=== PATIENT | female | born 1970 | race Two or more races ===

== ENCOUNTER 2020-10-23 14:14 | Day surgery (SDC) | payer MEDICARE, BC ==
[~2020-10-23] VITALS: Ht 167.6 cm; Wt 84.2 kg
[2020-10-23] MEDS ORDERED: SODIUM CHLORIDE 0.9% 1,000 ML IV SCH (14:30)
[2020-10-23] MEDS ORDERED: CHLORHEXIDINE 15 ML UDC PO ONE (15:00)
[2020-10-23] MEDS ORDERED: aspirin PO (15:09)
[2020-10-23] MEDS ORDERED: ATOR40TA78 PO (15:09)
[2020-10-23] MEDS ORDERED: gabapentin PO (15:09)
[2020-10-23] MEDS ORDERED: LOSA50TA14 PO (15:09)
[2020-10-23] MEDS ORDERED: PARO20TA4 PO (15:09)
[2020-10-23] MEDS ORDERED: OMEP-110 PO (15:09)
[2020-10-23] MEDS ORDERED: SODI10PO PO (15:09)
[2020-10-23] MEDS ORDERED: levothyroxine PO (15:09)
[2020-10-23 15:11] VITALS: BP 120/74
[2020-10-23] MEDS ORDERED: ACETAMINOPHEN 500 MG TABLET PO ONE (15:30)
[2020-10-23] MEDS ORDERED: NOVALOG INJ (15:36)
[2020-10-23] MEDS ORDERED: TRESIBA INJ (15:36)
[2020-10-23 16:22] LABS: MEAN CORPUSCULAR HEMOGLOBIN 32.2 pg (27.0-34.8); MEAN CORPUSCULAR HGB CONC 32.8 g/dL (32.4-35.8); MEAN PLATELET VOLUME 9.2 fL (7.4-10.4); PLATELET COUNT 240 x10^3/uL (130-400); RED BLOOD COUNT 3.46 x10^6/uL (3.82-5.3); RED CELL DISTRIBUTION WIDTH 20.7 % (9.6-15.2)
[2020-10-23 16:24] LABS: ALBUMIN 3.5 g/dL (3.4-5.0); ANION GAP 7 mmol/L (5-15); CALCIUM 8.4 mg/dL (8.5-10.1); CHLORIDE 93 mmol/L (98-107)
[2020-10-23 16:26] LABS: INTERNATIONAL NORMALIZED RATIO 0.95 (0.93-1.1); PROTHROMBIN TIME 10.2 Seconds (9.6-11.5)
[2020-10-23 16:28] LABS: ALANINE AMINOTRANSFERASE 22 U/L (12-78); ALKALINE PHOSPHATASE 275 U/L (45-117); BILIRUBIN,TOTAL 0.5 mg/dL (0.2-1.0); CREATININE 3.78 mg/dL (0.55-1.02); TOTAL PROTEIN 7.9 g/dL (6.4-8.2)
[2020-10-23] MEDS ORDERED: MIDAZOLAM 1 MG/ML, 2ML ONE (16:59)
[2020-10-23] MEDS ORDERED: FENTANYL PF 100 MCG/2ML ONE (16:59)
[2020-10-23 17:20] LABS: MD YES
[2020-10-23 17:22] LABS: BAND#(MANUAL) 0.07 x10^3/uL; BANDS%(MANUAL) 1 % (0-7); BASOS#(MANUAL) 0.07 x10^3/uL (0-0.1); BASOS% (MANUAL) 1 % (0-1); EOS#(MANUAL) 0.33 x10^3/uL (0.0-0.4); EOS% (MANUAL) 5 % (1-7); LYMPH#(MANUAL) 1.04 x10^3/uL (1-3.4); LYMPHS% (MANUAL) 16 % (22-44); MONOS#(MANUAL) 0.52 x10^3/uL (0.3-2.7); MONOS% (MANUAL) 8 % (2-9); SEG#(MANUAL) 4.49 x10^3/uL (1.8-6.8); SEGS% (MANUAL) 69 % (42-75)
[2020-10-23] MEDS ORDERED: BUPIVACAINE/PF 0.25% ONE (17:22)
[2020-10-23] MEDS ORDERED: HEPARIN 1,000 UNITS/ML, 10ML ONE (17:22)
[2020-10-23 17:23] LABS: ANISOCYTOSIS 1+
[2020-10-23 17:24] LABS: POLYCHROMASIA 1+
[2020-10-23 17:25] LABS: <PLATELET ESTIMATE> ADEQUATE; <PLT MORPHOLOGY> NORMAL PLT MORPH; <WBC MORPHOLOGY> NORMAL
[2020-10-23] MEDS ORDERED: HYDR-2214 PO (17:31)
[2020-10-23] MEDS ORDERED: CEFAZOLIN 1,000 MG ONE (17:48)
[2020-10-23] MEDS ORDERED: PROTAMINE SULFATE 10 MG/ML, 5ML ONE (18:34)
[2020-10-23] MEDS ORDERED: PHENYLEPHRINE 10 MG/ML ONE (18:35)
[2020-10-23] MEDS ORDERED: ESMOLOL 100 MG/10 ML ONE (18:35)
[2020-10-23] MEDS ORDERED: PROPOFOL 10 MG/ML, 20ML ONE (19:09)
[2020-10-23] MEDS ORDERED: LABETALOL 5MG/ML, 20ML IV PRN (20:00)
[2020-10-23] MEDS ORDERED: OXYcodone 5 MG/5 ML ORAL.SOL UDC PO PRN (20:00)
[2020-10-23] MEDS ORDERED: HYDROmorphone 1 MG/ML, 1ML INJ IVPush PRN (20:00)
[2020-10-23] MEDS ORDERED: FENTANYL PF 100 MCG/2ML IV PRN (20:00)
[2020-10-23] MEDS ORDERED: MEPERIDINE/PF 25MG/0.5ML IVPush PRN (20:00)
[2020-10-23] MEDS ORDERED: PROMETHAZINE 25 MG/ML, 1ML IVPush PRN (20:00)
[2020-10-23] MEDS ORDERED: HALOPERIDOL 5 MG/ML IV PRN (20:00)
[2020-10-23] MEDS ORDERED: DIPHENHYDRAMINE 50 MG/ML, 1ML IVPush PRN (20:00)
[2020-10-23] MEDS ORDERED: hydrALAzine 20 MG/ML, 1ML IV PRN (20:00)
== END 2020-10-23 21:15 | disposition home or self-care (01) ==
LOC: OUT 14:14
PROVIDERS: ATTEND Surgery
DX: I12.0 Hypertensive chronic kidney disease with stage 5 chronic kidney disease or end stage renal disease (principal); E10.22 Type 1 diabetes mellitus with diabetic chronic kidney disease; N18.6 End stage renal disease; F41.9 Anxiety disorder, unspecified; F32.9 Major depressive disorder, single episode, unspecified; E78.5 Hyperlipidemia, unspecified; E66.9 Obesity, unspecified; M19.90 Unspecified osteoarthritis, unspecified site; I25.10 Atherosclerotic heart disease of native coronary artery without angina pectoris; K21.9 Gastro-esophageal reflux disease without esophagitis; E03.9 Hypothyroidism, unspecified; Z98.890 Other specified postprocedural states; Z99.2 Dependence on renal dialysis; Z79.01 Long term (current) use of anticoagulants; Z79.899 Other long term (current) drug therapy; Z68.30 Body mass index [BMI] 30.0-30.9, adult; Z20.822 Contact with and (suspected) exposure to COVID-19
CPT/HCPCS: 36415; 36819; 80053; 82962; 85025; 85610; 85730; 87635; 93005; J0690; J1644; J2250; J2370; J2704; J2720; J3010; J7030